=== PATIENT | female | born 1990 | race African-American/Black ===

== ENCOUNTER 2016-02-27 22:23 | Emergency (ER) | payer OTHER ==
[2016-02-27] MEDS ORDERED: HYDROcod/ACETAM 5/325 MG TABLET PO STA (22:51)
[2016-02-27] MEDS ORDERED: ACETAMINOPHEN 500 MG TABLET PO STA (22:51)
[2016-02-27] MEDS ORDERED: DEXAMETHASONE 10 MG/ML VIAL PO STA (22:51)
[2016-02-27] MEDS ORDERED: CEPHALEXIN 250 MG CAPSULE PO STA (22:51)
[2016-02-27] MEDS ORDERED: CEPHALEXIN 250 MG CAPSULE PO ONE (23:00)
[2016-02-27] MEDS ORDERED: ACETAMINOPHEN 500 MG TABLET PO ONE (23:00)
[2016-02-27] MEDS ORDERED: HYDROcod/ACETAM 5/325 MG TABLET ONE (23:00)
[2016-02-27] MEDS ORDERED: DEXAMETHASONE 10 MG/ML VIAL ONE (23:00)
[2016-02-27] MEDS ORDERED: HYDROcod/ACET 5/325 Prepack 6 PO ONE ×2 (23:03→23:04)
== END 2016-02-27 23:16 | disposition home or self-care (01) ==
DX: J03.90 Acute tonsillitis, unspecified (principal); R50.9 Fever, unspecified
CPT/HCPCS: 81003; 81025; 99283; A9270

== ENCOUNTER 2016-11-14 10:10 | Emergency (ER) | payer OTHER ==
[2016-11-14] MEDS ORDERED: CYCLOBENZAPRINE 10 MG TABLET PO STA (10:43)
[2016-11-14] MEDS ORDERED: KETOROLAC 60 MG/2 ML VIAL IM STA (10:43)
[2016-11-14] MEDS ORDERED: LIDOCAINE PATCH 5% TOP STA (10:43)
--- NOTE | 2016-11-14 10:45 | ED Physician Documentation ---
History of Present Illness - Stated complaint Stated Complaint: BACK PAIN - Chief complaint Chief Complaint: Back Pain - Additonal information Additional information: hx from pt 26 AD [place] female with a hx of back pain inc pain today while doing PRT no numbness weakness (except 2/2 pain) or incont no new injury denies preg Review of Systems Constitutional: denies: Fever Ears: denies: Ear pain Throat: denies: Sore throat Cardiac: denies: Chest pain / pressure Respiratory: denies: Dyspnea, Cough GI: denies: Abdominal Pain : denies: Now EGA Musculoskeletal: reports: Back pain Neurologic: denies: Focal weakness, Numbness Endocrine: denies: Easy bruising / bleeding Immunocompromised: denies: Immunocompromised PD PAST MEDICAL HISTORY - Past Medical History Past Medical History: Yes Musculoskeletal: Chronic back pain - Past Surgical History Past Surgical History: No - Present Medications Home Medications: Ambulatory Orders Medication Instructions Recorded Confirmed Cephalexin [Keflex] 500 mg PO TID #21 capsule 02/27/16 Dexamethasone [Decadron] 4 mg PO DAILY #5 tablet 02/27/16 Carisoprodol [Soma] 350 mg PO Q8H PRN #15 tablet 11/14/16 Ibuprofen [Motrin] 400 mg PO Q6H PRN #30 tablet 11/14/16 Lidocaine Patch 5% [Lidoderm Patch] 1 each TOP DAILY PRN #10 patch 11/14/16 - Allergies Allergies/Adverse Reactions: Allergies Allergy/AdvReac Type Severity Reaction Status Date / Time No Known Drug Allergies Allergy Verified 02/27/16 22:29 - Social History Does the pt smoke?: No Smoking Status: Never smoker Does the pt drink ETOH?: Yes Does the pt have substance abuse?: No - Immunizations Immunizations are current?: Yes - POLST Patient has POLST: No PD ED PE NORMAL - Vitals Vital signs reviewed: Yes - Neck Neck: Supple, no meningeal sign - Cardiac Cardiac: RRR - Respiratory Respiratory: No respiratory distress, Clear bilaterally - Abdomen Abdomen: Soft, Non tender, Other (no pulsatile mass) - Derm Derm: Normal color - Neuro Neuro: Alert and oriented X 3, No motor deficit, No sensory deficit, Other ( limited by pain but hip felxion knee ext foot dorsi plantar andgreat toe ext intact, patellar DTR 2/4, neg SLR evelyn (only back pain) no clonus, sensation intact, denies saddle anesthesia) - Psych Psych: Normal mood Results - Vitals Vitals: Vital Signs - 24 hr 11/14/16 11/14/16 10:22 11:24 Temperature 36.9 C 36.3 C L Heart Rate 102 H 72 Respiratory 18 18 Rate Blood Pressure 121/74 111/69 O2 Saturation 100 100 Oxygen O2 Source Room air Departure - Departure Disposition: Home, Self Care Clinical Impression: Back pain Qualifiers: Back pain location: low back pain Chronicity: acute Back pain laterality: bilateral Sciatica presence: without sciatica Qualified Code(s): M54.5 - Low back pain Condition: Good Instructions: ED Low Back Pain Injury, ED Neck Back Pain General Follow-Up: AUDREY Betancourt [Provider Group] Prescriptions: Lidocaine Patch 5% [Lidoderm Patch] 1 each TOP DAILY PRN #10 patch PRN Reason: Pain Ibuprofen [Motrin] 400 mg PO Q6H PRN #30 tablet PRN Reason: Pain Carisoprodol [Soma] 350 mg PO Q8H PRN #15 tablet PRN Reason: muscle spasm Comments: You may walk around but no lifting or twisting or sports until you feel better Follow up at [facility] for a recheck within the next week Forms: Activity restrictions
[2016-11-14] MEDS ORDERED: CYCLOBENZAPRINE 10 MG TABLET PO ONE (10:57)
[2016-11-14] MEDS ORDERED: KETOROLAC 60 MG/2 ML VIAL ONE (10:57)
[2016-11-14] MEDS ORDERED: LIDOCAINE PATCH 5% TOP ONE (10:57)
[2016-11-14 11:25] VITALS: BP 111/69
== END 2016-11-14 12:00 | disposition home or self-care (01) ==
LOC: EDUNIT# → EDBD → ED 10:10
DX: M54.5 Low back pain (principal); G89.29 Other chronic pain
CPT/HCPCS: 96372; 99283; A9270

== ENCOUNTER 2017-10-06 19:20 | Emergency (ER) | payer OTHER ==
[2017-10-06 19:54] LABS: BILIRUBIN,URINE NEGATIVE (NEGATIVE); GLUCOSE, URINE (UA) NEGATIVE (NEGATIVE); KETONES,URINE (UA) NEGATIVE (NEGATIVE); LEUKOCYTE ESTERASE, URINE TRACE (NEGATIVE); NITRITE,URINE NEGATIVE (NEGATIVE); OCCULT BLOOD,URINE NEGATIVE (NEGATIVE); PH,URINE 5.5 PH (5.0-7.5); PROTEIN,URINE NEGATIVE (NEGATIVE); UROBILINOGEN,URINE 0.2 (NORMAL) E.U./dL (NORMAL)
[2017-10-06 19:57] LABS: CLARITY,URINE CLEAR (CLEAR); HCG UR QUAL POSITIVE
[2017-10-06] MEDS ORDERED: SODIUM CHLORIDE 0.9% 1,000 ML IV ONE (20:00)
[2017-10-06] MEDS ORDERED: METOCLOPRAMIDE 10 MG/2 ML VIAL IVP STA (20:00)
[2017-10-06 20:07] LABS: RBC,URINE None Seen /HPF (0-5)
[2017-10-06 20:08] LABS: BACTERIA,URINE Moderate /HPF (None Seen); MUCUS,URINE Moderate Strands; SQUAMOUS EPITHELIAL CELL,UR MANY Squamous (<= Few)
--- NOTE | 2017-10-06 20:19 | ED Physician Documentation ---
History of Present Illness - Stated complaint Stated Complaint: FAINTED - Chief complaint Chief Complaint: Abd Pain - History obtained from History obtained from: Patient - Additonal information Additional information: 27-year-old female presents the emergency department after a syncopal episode which occurred today at home. The patient reports feeling generally weak the past several days with intermittent episodes of nausea vomiting mostly in the morning. Today the patient began to feel lightheaded and when she stood up had a witnessed syncopal episode. The patient denies chest pain or palpitations before or after the event. The patient denies any trauma associated with the injury. The patient denies dysuria, vaginal bleeding or significant localized pain. Presently the patient feels improved. No other associated symptoms. Review of Systems Constitutional: reports: Fatigue. denies: Fever, Chills Eyes: denies: Photophobia Ears: denies: Ear pain Nose: denies: Congestion Throat: denies: Sore throat Cardiac: denies: Chest pain / pressure, Palpitations GI: reports: Nausea, Vomiting : denies: Dysuria Musculoskeletal: denies: Neck pain Neurologic: reports: Syncope. denies: Generalized weakness, Headache, Head injury Psychiatric: denies: Anxiety Immunocompromised: denies: Chemotherapy PD PAST MEDICAL HISTORY - Past Surgical History Past Surgical History: No - Present Medications Home Medications: Ambulatory Orders Medication Instructions Recorded Confirmed Cephalexin [Keflex] 500 mg PO TID #21 capsule 02/27/16 Dexamethasone [Decadron] 4 mg PO DAILY #5 tablet 02/27/16 Carisoprodol [Soma] 350 mg PO Q8H PRN #15 tablet 11/14/16 Ibuprofen [Motrin] 400 mg PO Q6H PRN #30 tablet 11/14/16 Lidocaine Patch 5% [Lidoderm Patch] 1 each TOP DAILY PRN #10 patch 11/14/16 Metoclopramide [Reglan] 10 mg PO Q6H PRN #30 tablet 10/06/17 - Allergies Allergies/Adverse Reactions: Allergies Allergy/AdvReac Type Severity Reaction Status Date / Time No Known Drug Allergies Allergy Verified 02/27/16 22:29 - Social History Does the pt smoke?: No Smoking Status: Never smoker Does the pt drink ETOH?: Yes Does the pt have substance abuse?: No - Immunizations Immunizations are current?: Yes - POLST Patient has POLST: No PD ED PE NORMAL - General General: Alert and oriented X 3, No acute distress - HEENT HEENT: Atraumatic, PERRL, EOMI, Ears normal - Neck Neck: Supple, no meningeal sign, No bony TTP - Cardiac Cardiac: RRR - Respiratory Respiratory: No respiratory distress, Clear bilaterally - Abdomen Abdomen: Soft, Non tender, Non distended - Back Back: No spinal TTP - Derm Derm: Normal color - Extremities Extremities: No deformity, No tenderness to palpate - Neuro Neuro: Alert and oriented X 3, Normal speech - Psych Psych: Normal affect Results - Vitals Vitals: Vital Signs - 24 hr 10/06/17 10/06/17 10/06/17 19:41 20:36 20:38 Temperature 36.5 C Heart Rate 83 90 Respiratory 18 17 17 Rate Blood Pressure 137/80 H 106/64 O2 Saturation 100 100 10/06/17 10/06/17 10/06/17 21:28 21:32 21:37 Temperature Heart Rate 81 Respiratory 17 20 16 Rate Blood Pressure 115/67 O2 Saturation 100 Oxygen O2 Source Room air - EKG (time done) 20:16 Rate: Rate (enter#) Rhythm: NSR Intervals: Normal VA, QRS normal QRS: Normal Ischemia: Normal ST segments Other comments: Other comments (Normal sinus rhythm with no acute ischemic or arrhythmic changes) - Labs Labs: Laboratory Tests 10/06/17 10/06/17 10/06/17 19:50 19:50 20:10 WBC 10.8 RBC 4.57 Hgb 13.8 Hct 39.2 MCV 85.6 MCH 30.1 MCHC 35.2 RDW 13.5 Plt Count 234 MPV 8.5 Neut # (Auto) 6.3 Lymph # (Auto) 3.7 H [place] # (Auto) 0.7 Eos # (Auto) 0.1 Baso # (Auto) 0.0 Absolute Nucleated RBC 0.00 Nucleated RBC % 0.0 Sodium Potassium Chloride Carbon Dioxide Anion Gap BUN Creatinine Estimated GFR (MDRD) Glucose Calcium Magnesium Total Bilirubin AST ALT Alkaline Phosphatase Total Protein Albumin Globulin Albumin/Globulin Ratio Lipase HCG, Quant Urine Color YELLOW Urine Clarity CLEAR Urine pH 5.5 Ur Specific [place] >=1.030 H >=1.030 H Urine Protein NEGATIVE Urine Glucose (UA) NEGATIVE Urine Ketones NEGATIVE Urine Occult Blood NEGATIVE Urine Nitrite NEGATIVE Urine Bilirubin NEGATIVE Urine Urobilinogen 0.2 (NORMAL) Ur Leukocyte Esterase TRACE H Urine RBC None Seen Urine WBC 0-3 Ur Squamous Epith Cells MANY Squamous H Urine Bacteria Moderate H Urine Mucus Moderate Strands Ur Microscopic Review INDICATED Urine Culture Comments NOT INDICATED Urine HCG, Qual POSITIVE 10/06/17 10/06/17 20:10 20:10 WBC RBC Hgb Hct MCV MCH MCHC RDW Plt Count MPV Neut # (Auto) Lymph # (Auto) [place] # (Auto) Eos # (Auto) Baso # (Auto) Absolute Nucleated RBC Nucleated RBC % Sodium 135 Potassium 3.1 L Chloride 101 Carbon Dioxide 26 Anion Gap 8.0 BUN 9 Creatinine 0.7 Estimated GFR (MDRD) 122 Glucose 81 Calcium 9.2 Magnesium 2.0 Total Bilirubin 0.7 AST 21 ALT 15 Alkaline Phosphatase 61 Total Protein 7.5 Albumin 4.0 Globulin 3.5 Albumin/Globulin Ratio 1.1 Lipase 27 HCG, Quant 73338.00 Urine Color Urine Clarity Urine pH Ur Specific [place] Urine Protein Urine Glucose (UA) Urine Ketones Urine Occult Blood Urine Nitrite Urine Bilirubin Urine Urobilinogen Ur Leukocyte Esterase Urine RBC Urine WBC Ur Squamous Epith Cells Urine Bacteria Urine Mucus Ur Microscopic Review Urine Culture Comments Urine HCG, Qual - Rads (name of study) OB US Radiology: Final report received PD MEDICAL DECISION MAKING - ED course ED course: On reevaluation the patient is resting comfortably and appears to be much improved, The patient reports feeling that her symptoms have resolved. The patient is an early and an ultrasound was done to rule out an ectopic causing her to be syncopal. The rest of the patient's workup is on remarkable and the patient appears appropriate for discharge and ongoing outpatient management. I discussed with her the findings and plan. The patient understands and agrees. I discussed warning signs and recommended returning to the emergency department immediately for worsening or any concerns - Sepsis Event Vital Signs: Vital Signs - 24 hr 10/06/17 10/06/17 10/06/17 19:41 20:36 20:38 Temperature 36.5 C Heart Rate 83 90 Respiratory 18 17 17 Rate Blood Pressure 137/80 H 106/64 O2 Saturation 100 100 10/06/17 10/06/17 10/06/17 21:28 21:32 21:37 Temperature Heart Rate 81 Respiratory 17 20 16 Rate Blood Pressure 115/67 O2 Saturation 100 Oxygen O2 Source Room air Departure - Departure Disposition: 01 Home, Self Care Clinical Impression: Hypokalemia Syncope Qualifiers: Syncope type: unspecified Qualified Code(s): R55 - Syncope and collapse Qualifiers: Weeks of gestation: less than 8 weeks Qualified Code(s): Z3A.01 - Less than 8 weeks gestation of Condition: Good Instructions: ED Fainting Unkn Cause, Preg 1st Trimester, Preg 1st Trimester Coping, Preg Common Questions, Preg More Common Questions Prescriptions: Metoclopramide [Reglan] 10 mg PO Q6H PRN #30 tablet PRN Reason: Nausea / Vomiting Comments: Please follow-up with your [facility]STRA[facility] for further workup and management of your early . Please follow-up with primary care for further evaluation of your syncopal episode. You may require an outpatient Holter monitor and echocardiogram. Please return to the emergency department immediately for worsening symptoms or any concerns.
[2017-10-06 20:43] LABS: BASOPHILS % (AUTO) 0.4 %; EOSINOPHILS # (AUTO) 0.1 10^3/uL (0.0-0.7); EOSINOPHILS % (AUTO) 0.7 %; HGB - HEMOGLOBIN 13.8 g/dL (12.0-16.0); LYMPHOCYTES # (AUTO) 3.7 10^3/uL (1.5-3.5); LYMPHOCYTES % (AUTO) 34.3 %; MEAN CORPUSCULAR HEMOGLOBIN 30.1 pg (27.0-31.0); MEAN CORPUSCULAR HGB CONC 35.2 g/dL (32.0-36.0); MEAN CORPUSCULAR VOLUME 85.6 fL (81.0-99.0); MEAN PLATELET VOLUME 8.5 fL (7.9-10.8); MONOCYTES # (AUTO) 0.7 10^3/uL (0.0-1.0); MONOCYTES % (AUTO) 6.8 %; NEUTROPHILS # (AUTO) 6.3 10^3/uL (1.5-6.6); NEUTROPHILS % (AUTO) 57.8 %; PLT - PLATELET COUNT 234 10^3/uL (130-450); RED BLOOD COUNT 4.57 10^6/uL (4.20-5.40); RED CELL DISTRIBUTION WIDTH 13.5 % (12.0-15.0); WHITE BLOOD COUNT 10.8 x10^3/uL (4.8-10.8)
[2017-10-06 20:52] LABS: ALBUMIN/GLOBULIN RATIO 1.1 (1.0-2.2); BILIRUBIN,TOTAL 0.7 mg/dL (0.2-1.0); CALCIUM 9.2 mg/dL (8.5-10.3); CREATININE 0.7 mg/dL (0.4-1.0); TOTAL PROTEIN 7.5 g/dL (6.7-8.2)
[2017-10-06] MEDS ORDERED: POTASSIUM CHLORIDE 20 MEQ TABLET PO STA (20:55)
[2017-10-06 21:34] VITALS: BP 115/67
--- NOTE | 2017-10-06 21:38 | Ultrasound Report ---
Procedure Date: 10/06/2017 Accession Number: [id number] / [id number] Procedure: US - OB First Trimester CPT Code: FULL RESULT: EXAM: FIRST TRIMESTER OBSTETRIC ULTRASOUND (Less than 11 weeks) EXAM DATE: 10/06/2017 08:46 PM. CLINICAL HISTORY: with pain. LMP: Unknown. COMPARISONS: None. TECHNIQUE: Transabdominal and transvaginal ultrasound examination with static image documentation. CLINICAL DATES: EGA 7 weeks/5 days with SAMI 05/20/2017 based on LMP/ . ASSESSMENT: Gestational Sac: Single intrauterine. Mean gestational sac diameter: 18.2 mm = 6 weeks/one days. Embryo: CRL (crown-rump length) 5.4 mm = 6 weeks/2 days. Cardiac activity: 126 beats per minute. Yolk sac: 4 mm. Amniotic fluid: Not accurately assessed at this gestational age. Early placenta: Not visible at this gestational age. Other: No perigestational fluid collection demonstrated. MATERNAL STRUCTURES: Uterus: Anteverted . Unremarkable. Cervix: Closed. Right Ovary/Adnexa: Unremarkable. The ovary measures 3 x 1.5 x 1.7 cm, volume 4.1 cc. Left Ovary/Adnexa: Unremarkable. The ovary measures 2.6 x 1.6 x 1.5 cm, volume 3.3 cc. Free Fluid: None. Other: None. IMPRESSION: 1. Single viable intrauterine at EGA 6 weeks/2 days with SAMI 05/30/2018 based on crown-rump length, which is discordant with clinical dates. RADIA
== END 2017-10-06 22:19 | disposition home or self-care (01) ==
LOC: ED 19:20
DX: O99.89 Other specified diseases and conditions complicating pregnancy, childbirth and the puerperium (principal); E87.6 Hypokalemia; R55 Syncope and collapse
CPT/HCPCS: 36415; 76801; 76817; 80053; 81001; 81025; 83690; 83735; 84702; 85025; 93005; 96361; 96374; 99283; 99284; A9270; J2765; 81003; 87086

== ENCOUNTER 2018-05-04 08:00 | Outpatient (CLI) | payer OTHER | END 2018-05-04 23:59 | disposition home or self-care (01) | LOC: LAB.R 08:00 | PROVIDERS: ATTEND Registered Nurse | DX: Z34.90 Encounter for supervision of normal pregnancy, unspecified, unspecified trimester (principal) | CPT/HCPCS: 87077; 87081; 87491; 87591 ==

== ENCOUNTER 2018-05-04 11:07 | Outpatient (CLI) | payer OTHER ==
[2018-05-05 13:36] LABS: HIV AG/AB 4TH GEN NON-REACTIVE (NON-REACTIVE)
[2018-05-05 13:53] LABS: HEPATITIS C ANTIBODY NON-REACTIVE (NON-REACTIVE)
== END 2018-05-04 11:08 | disposition home or self-care (01) ==
LOC: LAB 11:07
PROVIDERS: ATTEND Registered Nurse
DX: Z34.90 Encounter for supervision of normal pregnancy, unspecified, unspecified trimester (principal)
CPT/HCPCS: 36415; 81599; 86592; 86803; 87077; 87081; 87389; 87491; 87591

== ENCOUNTER 2018-06-03 14:31 | Inpatient (IN) | payer OTHER ==
[2018-06-03] MEDS ORDERED: SODIUM CHLORIDE FLUSH 0.9% 10 ML SYRINGE IVP PRN (14:34)
[2018-06-03] MEDS ORDERED: fentaNYL 100 MCG/2 ML VIAL IVP PRN (14:34)
[2018-06-03] MEDS ORDERED: ONDANSETRON 4 MG/2 ML VIAL IVP PRN (14:34)
[2018-06-03] MEDS ORDERED: SODIUM CHLORIDE FLUSH 0.9% 10 ML SYRINGE ONE (14:45)
[2018-06-03 15:04] LABS: BASOPHILS # (AUTO) 0.1 10^3/uL (0.0-0.1); BASOPHILS % (AUTO) 0.7 %; EOSINOPHILS % (AUTO) 0.3 %; HGB - HEMOGLOBIN 10.7 g/dL (12.0-16.0); LYMPHOCYTES % (AUTO) 21.9 %; MEAN CORPUSCULAR HEMOGLOBIN 23.7 pg (27.0-31.0); MEAN CORPUSCULAR HGB CONC 31.9 g/dL (32.0-36.0); MEAN CORPUSCULAR VOLUME 74.2 fL (81.0-99.0); MEAN PLATELET VOLUME 8.5 fL (7.9-10.8); MONOCYTES # (AUTO) 0.8 10^3/uL (0.0-1.0); MONOCYTES % (AUTO) 5.8 %; NEUTROPHILS # (AUTO) 9.8 10^3/uL (1.5-6.6); NEUTROPHILS % (AUTO) 71.3 %; PLT - PLATELET COUNT 249 10^3/uL (130-450); RED BLOOD COUNT 4.51 10^6/uL (4.20-5.40); RED CELL DISTRIBUTION WIDTH 19.4 % (12.0-15.0); WHITE BLOOD COUNT 13.7 x10^3/uL (4.8-10.8)
[2018-06-03] MEDS ORDERED: LACTATED RINGERS 1,000 ML IV ONE (15:38)
[2018-06-03] MEDS: miSOPROStol 100 MCG TABLET BC SCH ×2 (15:44→20:08)
[2018-06-03] MEDS: SODIUM CHLORIDE FLUSH 0.9% 10 ML SYRINGE IVP SCH (15:45)
[2018-06-03] MEDS ORDERED: PENICILLIN G POTASSIUM 5,000,000 UNIT in SODIUM CHLORIDE 0.9% MINIBAG 100 ML IV ONE (16:00)
[2018-06-03 16:25] LABS: URIC ACID 3.4 mg/dL (2.6-7.2)
[2018-06-03 17:05] LABS: BILIRUBIN,URINE NEGATIVE (NEGATIVE); GLUCOSE, URINE (UA) NEGATIVE (NEGATIVE); KETONES,URINE (UA) 40 mg/dL (NEGATIVE); LEUKOCYTE ESTERASE, URINE LARGE (NEGATIVE); NITRITE,URINE NEGATIVE (NEGATIVE); OCCULT BLOOD,URINE TRACE-INTA (NEGATIVE); PH,URINE 5.5 PH (5.0-7.5); PROTEIN,URINE NEGATIVE (NEGATIVE); UROBILINOGEN,URINE 0.2 (NORMAL) E.U./dL (NORMAL)
[2018-06-03 17:06] LABS: CLARITY,URINE CLEAR (CLEAR)
[2018-06-03 17:10] LABS: CREATININE,URINE 63.6 mg/dL; PROTEIN/CREATININE RATIO,URINE 0.1 (<=0.2)
[2018-06-03 17:14] LABS: BACTERIA,URINE Rare /HPF (None Seen); RBC,URINE 0-5 /HPF (0-5); SQUAMOUS EPITHELIAL CELL,UR MOD Squamous (<= Few)
[2018-06-03] MEDS: LABETALOL 100 MG TABLET PO SCH (17:29)
[2018-06-03] MEDS ORDERED: LABETALOL 100 MG TABLET PO SCH (17:30)
--- NOTE | 2018-06-03 17:54 | HISTORY & PHYSICAL EXAMINATION ---
Admit History - Visit Reason Visit Reason: Other - : 2 Parity: 1 Premature: 0 Ectopic: 0 : 0 Care: positive: [facility] Risk/History: positive: None Complications This : positive: None Smoking Status: Never smoker - Mother's Labs Mother's Blood Type: positive: O Mother's RH: positive: Positive GBS: positive: Group B Strep Positive Rubella Status: positive: Immune Meds/Allgy - Home Medications Home Medications: Ambulatory Orders Medication Instructions Recorded Confirmed Cephalexin [Keflex] 500 mg PO TID #21 capsule 02/27/16 Dexamethasone [Decadron] 4 mg PO DAILY #5 tablet 02/27/16 Carisoprodol [Soma] 350 mg PO Q8H PRN #15 tablet 11/14/16 Ibuprofen [Motrin] 400 mg PO Q6H PRN #30 tablet 11/14/16 Lidocaine Patch 5% [Lidoderm Patch] 1 each TOP DAILY PRN #10 patch 11/14/16 Metoclopramide [Reglan] 10 mg PO Q6H PRN #30 tablet 10/06/17 - Allergies Allergies/Adverse Reactions: Allergies Allergy/AdvReac Type Severity Reaction Status Date / Time No Known Drug Allergies Allergy Verified 02/27/16 22:29 Review of Systems - Constitutional Constitutional: denies: Fever, Chills, Malaise - Eyes Eyes: denies: Blurred vision, Spots in vision, Dipolpia - Cardiovascular Cariovascular: denies: Palpitations, Chest pain, Edema, Lightheadedness - Respiratory Respiratory: denies: Cough, SOB at rest - Gastrointestinal Gastrointestinal: denies: Constipation, Diarrhea, Nausea, Vomiting - Integumentary Integumentary: denies: Rash, Pruritis - Psychiatric Psychiatric: denies: Depression, Anxiety Physical - Abdominal Exam Contraction Intensity: positive: Mild Uterine Resting Tone: positive: Soft - Monitoring Strip Review: positive: Category I - Presentation Presentation: positive: Vertex - Vaginal Exam Membranes: positive: Membranes intact Plan for Labor - Plan For Labor I expect patient to be DC'd or transferred within 96 hours.: Yes Plan for Labor: HPI: This 28yo @ 40.3wk for elective induction of labor. 06/03/2018 in the office she was noted to be 2/50/-3, posterior, vertex. She contracted minimally throughout the night and SVE was not repeated upon her arrival. She was noted to be GBS positive. She was a transfer of care at 35wks gestation. She was dated by a 16.3wk U/S which was disconcordant from her LMP dating. 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 Upon her arrival she was noted to have elevated BP to 140s/90s with repeats 150s/100s. She denies DIALLO, visual disturbances, RUQ or epigastric pain, and neg edema. DTRs 2+, no clonus. Of note, her temperature was elevated to 37.4 and increased to 37.6. WBC 13. Rapid flu negative. Pt denies feeling ill. Denies dizziness, lightheadedness, chills or malaise. 650mg PO tylenol administered secondary to fever. Her UA was negative for protein and her pr/cr ratio is <0.1. PIH labs WNL. Will plan to repeat PIH labs in 12 hours or sooner PRN. Dr[address] Pelletier, sugar controller physician was notified and secondary to patient plan for unmedicated delivery and obvious BP unrelated to pain response, recommendation was to administer 100mg PO lobetalol q 8 hrs to be administered if BP exceeds 150 systolic or 100 diastolic. 100mg PO lobetalol administered and BP decreased to 130s/90s. Pt continues to be asymptomatic. Assessment: 28yo @ 40.3wks gestation Gestational HTN GBS positive IOL with preinduction cervical ripening Plan: Continuous monitoring 100mg PO lobetalol q 8 hrs to be administered if BP exceeds 150 systolic or 100 diastolic Continue penicillin for GBS prophylaxis per protocol Continue Tylenol PO q 6 hrs PRN fever. Plan Ambien PO tonight. Anticipate spontaneous vaginal delivery
[2018-06-03] MEDS ORDERED: ACETAMINOPHEN 325 MG TABLET PO PRN (18:53)
[2018-06-03] MEDS ORDERED: ZOLPIDEM 5 MG TABLET PO PRN (19:31)
[2018-06-03] MEDS ORDERED: PENICILLIN G POTASSIUM 2,500,000 UNIT in SODIUM CHLORIDE 0.9% 100ML 100 ML IV SCH (20:00)
--- NOTE | 2018-06-03 20:14 | PROVIDER PROGRESS NOTE ---
Labor Progress Note - Uterine Monitoring Uterine Monitoring Mode: positive: External toco Contraction Intensity: positive: Mild to moderate Uterine Resting Tone: positive: Soft - Monitoring Monitor Mode: positive: External ultrasound Heart Rate Baseline: 150 Heart Rate Variability: positive: Moderate (6-25 bmp) Accelerations: positive: Present, 15x15 Decelerations: positive: None Strip Review: positive: Category I - Vaginal Exam Dilation (in cm): 3 Effacement (%): 80 Station: -2 Cervical Position: Midposition - Labor Progress Note Labor Progress Note/Additional Text: S: Laying in bed and feeling chilled. She requests a warm blanket and increase in room temperature. Family feels comfortable in the room. Feeling an increase in the intensity of contractions. Mood is good. supportive at the bedside. O: T 38.0, BP 145/84, HR 105 Contractions palpate mild. Contracted regularly every 2-5 minutes after initial dose of misoprostol but since next dose of misoprostol is due, contractions have become irregular and intermittent. FHR baseline 150s, moderate variability, + accels, one variable deceleration noted. SVE 3/80/-2, midposition, soft, vertex AROM with scan amount of pink-tinged fluid A: 28yo @ 40.3wks gestation GBS positive - s/p loading dose of penicillin Pre-induction cervical ripening with misoprostol - s/p 1 dose 50mcg BC misoprostol Gestational HTN - s/p 1 dose 100mg lobetalol and repeat dose parameters provided. Asymptomatic Low grade fever & chills - s/p 650mg PO tylenol P: Continuous monitoring BP q 2 hours. Repeat PIH labs at 0400. Administer lobetalol 100mg q 8 hours if BP systolic >150s and diastolic >100 Continue BC misoprostol q 4 hours Anticipate spontaneous vaginal delivery
[2018-06-03] MEDS ORDERED: LIDOCAINE-MPF 1% 30 ML VIAL ONE (20:43)
[2018-06-03] MEDS ORDERED: OXYTOCIN/SODIUM CHLORIDE 500 ML IV ONE (20:43)
[2018-06-03] MEDS: OXYTOCIN/SODIUM CHLORIDE 500 ML IV PRN ×2 (23:10→23:50)
[2018-06-03] MEDS ORDERED: BUFFERED LIDOCAINE 10 ML SYRINGE SUBQ SCH (23:59)
[2018-06-04] MEDS ORDERED: OXYTOCIN/SODIUM CHLORIDE 500 ML IV ONE (00:02)
[2018-06-04] MEDS ORDERED: LIDOCAINE 1% 2 ML VIAL SUBQ SCH (00:11)
[2018-06-04] MEDS ORDERED: OXYTOCIN/SODIUM CHLORIDE 500 ML IV PRN ×2 (00:15)
[2018-06-04] MEDS ORDERED: HYDROCORTISONE 1% CREAM 28 GM TUBE PR PRN (00:18)
[2018-06-04] MEDS ORDERED: WITCH HAZEL/GLYCERIN 1 EACH MED..PAD TOP PRN (00:18)
[2018-06-04] MEDS: ACETAMINOPHEN 500 MG TABLET PO PRN ×2 (00:47→06:11)
--- NOTE | 2018-06-04 01:25 | DELIVERY NOTE ---
Delivery Note - Labor Labor: positive: Augmented by ARM, Other - Delivery Method Delivery Method: positive: Spontaneous vaginal delivery - Presentation Presentation: positive: Vertex, CECILE - left occiput anterior - Nuchal Cord Nuchal Cord: positive: Present, Reduced - Amniotic Fluid Description Amniotic Fluid Description: positive: Clear - Episiotomy Type Episiotomy Type: positive: None - Laceration Laceration: positive: 1st degree, 2nd degree, Labial, Perineal - Suture Suture Type: positive: Vicryl Suture Size: positive: 3-0 - Delivery Outcome Delivery Outcome: positive: Livebirth - [place]: positive: Placed in direct skin contact with mother, Suctioned, Bulb syringe, Stimulated, Warmed, [place] used sex: positive: Male - Cord Cord: positive: 3 vessels - Placenta Placenta: positive: Intact, Manual removal - Estimated Blood Loss Estimated Blood Loss (in cc): 350 - Post Delivery Events Post Delivery Events: positive: No post delivery events - Delivery Comments (Free Text/Narrative) Delivery Comments (Free Text/Narrative): This 28yo @ 40.3wks gestation by L=16.3wk U/S presented on 06/03/2018 @ 1420 for elective IOL. She was noted to have elevated BP upon her arrival 150s/100s with negative PIH labs and negative urine protein and remained asymptomatic. She was given 100mg PO labetalol and BP decreased to 130s/90s where it remained throughout her labor and delivery course. At approximately 1700 she was noted to have a low grade fever and chills. Her rapid influenza was negative. She received 650mg Tylenol PO. She tested positive for GBS and received penicillin per protocol for prophylaxis. She received 50mcg BC misoprostol q 4 hours for preinduction cervical ripening x 2 total doses. AROM occurred at 1953 and was noted to be a scant amount of pink-tinged fluid and pt continued to leak a small amount of clear amniotic fluid. She progressed to 9/10 0/-1 with spontaneous urge to push at 2235. Anterior cervical lip easily reduced and pt noted to be complete at 2245. She spontaneously delivered a viable male infant at 2309 on 06/03/2018. Nuchal cord x 1 reduced. 's 7/9 at 1 and 5 min respectively. The was placed on maternal abdomen, stimulated, dried, and placed skin to skin. The umbilical cord was doubly clamped by CNM and cut by FOB. Cord blood was obtained. Pitocin administered via IV for hemostasis. Cord noted to lengthen with gush of blood from vagina and gentle downward traction on the umbilical cord caused evulsion at cord insertion site into placenta. Pitocin infusion stopped and 50mcg Fentanyl administered via IV. Incomplete manual removal of placenta at 2325 with moderate bleeding. Pitocin initiated via IV. Dr. Pelletier, mortgage protection sales physician notified and presence requested at the bedside for assistance. Second attempt at manual removal of the placenta successful in evacuating the uterus of large portion of placenta and membranes at 2330. Dr. Pelletier arrived at the bedside and a limited bedside transabdominal ultrasound was performed. Upper uterine segment appeared free from retained products of conception and lower uterine segment at internal cervical os there appeared to be a blood clot which was expelled along with small piece of placenta tissue with fundal massage shortly after U/S. EBL 350mL. Uterine fundus firm and there is no excessive bleeding. The perineum, vagina, and cervix were inspected and found to have second degree perineal laceration which was repaired with 3-[address]-1 needle in standard fashion under sterile conditions. She was also noted to have a left labial laceration which repaired using a 4-0 vicryl on an SH needle in standard fashion under sterile conditions. Vaginal examination following repair was done. Tissues well approximated. initiated. Family bonding well. Both mother and baby were left in stable condition.
[2018-06-04] MEDS: IBUPROFEN 800 MG TABLET PO SCH ×3 (03:31→15:33)
[2018-06-04 04:12] LABS: BASOPHILS % (AUTO) 0.1 %; HGB - HEMOGLOBIN 8.6 g/dL (12.0-16.0); LYMPHOCYTES # (AUTO) 1.5 10^3/uL (1.5-3.5); LYMPHOCYTES % (AUTO) 6.2 %; MEAN CORPUSCULAR HEMOGLOBIN 23.7 pg (27.0-31.0); MEAN CORPUSCULAR HGB CONC 32.5 g/dL (32.0-36.0); MEAN PLATELET VOLUME 8.3 fL (7.9-10.8); MONOCYTES # (AUTO) 1.5 10^3/uL (0.0-1.0); MONOCYTES % (AUTO) 6.4 %; NEUTROPHILS # (AUTO) 20.7 10^3/uL (1.5-6.6); NEUTROPHILS % (AUTO) 87.3 %; PLT - PLATELET COUNT 221 10^3/uL (130-450); RED BLOOD COUNT 3.64 10^6/uL (4.20-5.40); RED CELL DISTRIBUTION WIDTH 19.3 % (12.0-15.0); WHITE BLOOD COUNT 23.8 x10^3/uL (4.8-10.8)
[2018-06-04 04:22] LABS: URIC ACID 3.3 mg/dL (2.6-7.2)
[2018-06-04 04:43] LABS: DIFFERENTIAL COMMENT MANUAL=AUTO DIFF; PLATELET ESTIMATE, MANUAL NORMAL (130-450,000) (NORMAL); RBC MORPHOLOGY (MULTIPLE) NORMAL APPEARANCE (NORMAL)
[2018-06-04] MEDS: HYDROcod/ACETAM 5/325 MG TABLET PO PRN ×2 (06:11→11:06)
--- NOTE | 2018-06-04 07:55 | PROVIDER PROGRESS NOTE ---
Subjective - Subjective Subjective: S: Bonding well with baby. Feeling fatigued but overall feels she is doing well. She report some discomfort at perineum with urination but has been consistently using her peribottle and tucks pads which she feels does help. Her pain is otherwise well controlled with oral medications. She does report some dizziness and lightheadedness when going from a sitting to a standing position. Denies symptoms at rest. without difficulty and she states when baby nurses it is significantly less uncomfortable than it was with her first. O: BP 128/88, RR 16, HR 103, T 37.2 Hgb 10.7-->8.6 Hct 33.5-->26.5 WBC 13.7-->23.8 PLT 249-221 Repeat PIH labs WNL Heart RRR w/o M/G/R, lungs CTAB, abdomen soft and nontender with fundus firm at U. Perineum intact, repair with mild edema. Light lochia rubra. Bilateral LE's no edema. A: 28yo -->P2 s/p TSVD of viable male infant Second degree perineal laceration - intact Gestational HTN - BP mildly elevated. Has not required additional treatment since initial dose of labetalol. Afebrile - temp upon arrival P: Continue routine care and medications Administered 1 g ampicillin IV x 1 for prophylaxis secondary to manual removal of placenta Repeat H&H in the am - consider IV iron transfusion PRN Pt and verbalized understanding and agree to above plan. They deny further questions or concerns at this time. Objective - Vital Signs/Intake & Output Vital Signs: Vital Signs x48h Temp Pulse Resp BP Pulse Ox 06/04/18 06:07 37.2 C 103 H 16 128/88 H 100 06/04/18 02:59 37.3 C 06/04/18 02:04 37.9 C H 108 H 16 127/80 100 06/04/18 01:44 112 H 143/93 H 100 06/04/18 01:40 121 H 138/96 H 100 06/04/18 00:46 108 H 16 145/76 H 100 06/04/18 00:28 38.1 C H 107 H 18 139/97 H 100 06/04/18 00:15 116 H 18 130/80 06/03/18 23:56 113 H 142/85 H 100 06/03/18 23:50 103 H 16 147/99 H 100 06/03/18 23:42 121 H 16 138/96 H 100 Intake & Output: Intake & Output 06/01/18 06/02/18 06/03/18 06/04/18 23:59 23:59 23:59 23:59 Intake Total 1100 Output Total 2 200 Balance 1098 -200 - Lab Results Fish Bones: 06/04/18 04:00 Other Labs: Lab Results x24hrs 06/04/18 06/04/18 06/04/18 Range/Units 04:00 04:00 04:00 WBC 23.8 H (4.8-10.8) x10^3/uL RBC 3.64 L (4.20-5.40) 10^6/uL Hgb 8.6 L (12.0-16.0) g/dL Hct 26.5 L (37.0-47.0) % MCV 73.0 L (81.0-99.0) fL MCH 23.7 L (27.0-31.0) pg MCHC 32.5 (32.0-36.0) g/dL RDW 19.3 H (12.0-15.0) % Plt Count 221 (130-450) 10^3/uL MPV 8.3 (7.9-10.8) fL Neut # (Auto) 20.7 H (1.5-6.6) 10^3/uL Lymph # (Auto) 1.5 (1.5-3.5) 10^3/uL [place] # (Auto) 1.5 H (0.0-1.0) 10^3/uL Eos # (Auto) 0.0 (0.0-0.7) 10^3/uL Baso # (Auto) 0.0 (0.0-0.1) 10^3/uL Absolute Nucleated RBC 0.01 x10^3/uL Band Neuts % (Manual) Not Reportable Abnorm Lymph % (Manual) Not Reportable Nucleated RBC % 0.0 /100WBC Neutrophils # (Manual) Not Reportable Lymphocytes # (Manual) Not Reportable Monocytes # (Manual) Not Reportable Eosinophils # (Manual) Not Reportable Basophils # (Manual) Not Reportable Differential Comment MANUAL=AUTO DIFF Platelet Estimate NORMAL (130-450,000) (NORMAL) RBC Morph Micro Appear NORMAL APPEARANCE (NORMAL) Uric Acid 3.3 (2.6-7.2) mg/dL AST 28 (10-42) IU/L Lactate Dehydrogenase 249 H (91-225) IU/L Urine Color Urine Clarity (CLEAR) Urine pH (5.0-7.5) PH Ur Specific [place] (1.002-1.030) Urine Protein (NEGATIVE) mg/dL Urine Glucose (UA) (NEGATIVE) mg/dL Urine Ketones (NEGATIVE) mg/dL Urine Occult Blood (NEGATIVE) Urine Nitrite (NEGATIVE) Urine Bilirubin (NEGATIVE) Urine Urobilinogen (NORMAL) E.U./dL Ur Leukocyte Esterase (NEGATIVE) Urine RBC (0-5) /HPF Urine WBC (0-5) /HPF Ur Squamous Epith Cells (<= Few) Urine Bacteria (None Seen) /HPF Urine Creatinine mg/dL Ur Total Protein Timed mg/dL Protein/Creatinin Ratio (<=0.2) Influenza A (Rapid) (Negative) Influenza B (Rapid) (Negative) 06/03/18 06/03/18 06/03/18 Range/Units 18:50 16:50 16:50 WBC (4.8-10.8) x10^3/uL RBC (4.20-5.40) 10^6/uL Hgb (12.0-16.0) g/dL Hct (37.0-47.0) % MCV (81.0-99.0) fL MCH (27.0-31.0) pg MCHC (32.0-36.0) g/dL RDW (12.0-15.0) % Plt Count (130-450) 10^3/uL MPV (7.9-10.8) fL Neut # (Auto) (1.5-6.6) 10^3/uL Lymph # (Auto) (1.5-3.5) 10^3/uL [place] # (Auto) (0.0-1.0) 10^3/uL Eos # (Auto) (0.0-0.7) 10^3/uL Baso # (Auto) (0.0-0.1) 10^3/uL Absolute Nucleated RBC x10^3/uL Band Neuts % (Manual) Abnorm Lymph % (Manual) Nucleated RBC % /100WBC Neutrophils # (Manual) Lymphocytes # (Manual) Monocytes # (Manual) Eosinophils # (Manual) Basophils # (Manual) Differential Comment Platelet Estimate (NORMAL) RBC Morph Micro Appear (NORMAL) Uric Acid (2.6-7.2) mg/dL AST (10-42) IU/L Lactate Dehydrogenase (91-225) IU/L Urine Color YELLOW Urine Clarity CLEAR (CLEAR) Urine pH 5.5 (5.0-7.5) PH Ur Specific [place] 1.010 (1.002-1.030) Urine Protein NEGATIVE (NEGATIVE) mg/dL Urine Glucose (UA) NEGATIVE (NEGATIVE) mg/dL Urine Ketones 40 H (NEGATIVE) mg/dL Urine Occult Blood [place] (NEGATIVE) Urine Nitrite NEGATIVE (NEGATIVE) Urine Bilirubin NEGATIVE (NEGATIVE) Urine Urobilinogen 0.2 (NORMAL) (NORMAL) E.U./dL Ur Leukocyte Esterase LARGE H (NEGATIVE) Urine RBC 0-5 (0-5) /HPF Urine WBC 11-25 H (0-5) /HPF Ur Squamous Epith Cells MOD Squamous H (<= Few) Urine Bacteria Rare (None Seen) /HPF Urine Creatinine 63.6 mg/dL Ur Total Protein Timed 9 mg/dL Protein/Creatinin Ratio 0.1 (<=0.2) Influenza A (Rapid) Negative (Negative) Influenza B (Rapid) Negative (Negative) 06/03/18 06/03/18 06/03/18 Range/Units 16:05 16:05 14:54 WBC 13.7 H (4.8-10.8) x10^3/uL RBC 4.51 (4.20-5.40) 10^6/uL Hgb 10.7 L (12.0-16.0) g/dL Hct 33.5 L (37.0-47.0) % MCV 74.2 L (81.0-99.0) fL MCH 23.7 L (27.0-31.0) pg MCHC 31.9 L (32.0-36.0) g/dL RDW 19.4 H (12.0-15.0) % Plt Count 249 (130-450) 10^3/uL MPV 8.5 (7.9-10.8) fL Neut # (Auto) 9.8 H (1.5-6.6) 10^3/uL Lymph # (Auto) 3.0 (1.5-3.5) 10^3/uL [place] # (Auto) 0.8 (0.0-1.0) 10^3/uL Eos # (Auto) 0.0 (0.0-0.7) 10^3/uL Baso # (Auto) 0.1 (0.0-0.1) 10^3/uL Absolute Nucleated RBC 0.02 x10^3/uL Band Neuts % (Manual) Abnorm Lymph % (Manual) Nucleated RBC % 0.1 /100WBC Neutrophils # (Manual) Lymphocytes # (Manual) Monocytes # (Manual) Eosinophils # (Manual) Basophils # (Manual) Differential Comment Platelet Estimate (NORMAL) RBC Morph Micro Appear (NORMAL) Uric Acid 3.4 (2.6-7.2) mg/dL AST 20 (10-42) IU/L Lactate Dehydrogenase 185 (91-225) IU/L Urine Color Urine Clarity (CLEAR) Urine pH (5.0-7.5) PH Ur Specific [place] (1.002-1.030) Urine Protein (NEGATIVE) mg/dL Urine Glucose (UA) (NEGATIVE) mg/dL Urine Ketones (NEGATIVE) mg/dL Urine Occult Blood (NEGATIVE) Urine Nitrite (NEGATIVE) Urine Bilirubin (NEGATIVE) Urine Urobilinogen (NORMAL) E.U./dL Ur Leukocyte Esterase (NEGATIVE) Urine RBC (0-5) /HPF Urine WBC (0-5) /HPF Ur Squamous Epith Cells (<= Few) Urine Bacteria (None Seen) /HPF Urine Creatinine mg/dL Ur Total Protein Timed mg/dL Protein/Creatinin Ratio (<=0.2) Influenza A (Rapid) (Negative) Influenza B (Rapid) (Negative)
[2018-06-04] MEDS ORDERED: AMPICILLIN 1 GM in SODIUM CHLORIDE 0.9% MINIBAG 100 ML IV ONE (08:00)
[2018-06-04] MEDS: LABETALOL 100 MG TABLET PO SCH ×2 (08:18→14:07)
[2018-06-04] MEDS: SODIUM CHLORIDE FLUSH 0.9% 10 ML SYRINGE IVP SCH (08:29)
[2018-06-04] MEDS ORDERED: SODIUM CHLORIDE FLUSH 0.9% 10 ML SYRINGE ONE (08:31)
[2018-06-04] MEDS: DOCUSATE SODIUM 100 MG CAPSULE PO SCH (09:16)
[2018-06-05] MEDS: IBUPROFEN 800 MG TABLET PO SCH ×5 (03:37→22:51)
[2018-06-05] MEDS: ACETAMINOPHEN 500 MG TABLET PO PRN ×2 (03:42→10:05)
[2018-06-05 06:58] LABS: MEAN CORPUSCULAR HGB CONC 32.2 g/dL (32.0-36.0); MEAN CORPUSCULAR VOLUME 74.6 fL (81.0-99.0); MEAN PLATELET VOLUME 8.4 fL (7.9-10.8); RED BLOOD COUNT 2.64 10^6/uL (4.20-5.40); WHITE BLOOD COUNT 14.7 x10^3/uL (4.8-10.8)
[2018-06-05 07:05] LABS: HGB - HEMOGLOBIN 6.3 g/dL (12.0-16.0)
[2018-06-05] MEDS ORDERED: diphenhydrAMINE 25 MG CAPSULE PO PRN (08:07)
--- NOTE | 2018-06-05 08:32 | PROVIDER PROGRESS NOTE ---
Subjective - Subjective Subjective: S: Bonding well with baby. without difficulty. Reports feeling fine when she is laying in bed but notes lightheadedness when walking to the bathroom. Pain well controlled with oral medications. Bleeding decreased and is light. Pt describes her flow like a normal menses. O: BP 128/80, T 36.6, HR 109, RR 16 Hgb: 10.7-->8.6-->6.3 Hct: 33.5-->26.5-->19.7 PLT: 249-->221-->183 WBC: 13.7-->23.8-->14.7 Heart RRR w/o M/G/R, lungs CTAB, abdomen soft and nontender with fundus firm at U-1. Perineum intact and repair without edema. Light lochia rubra. Bilateral LEs no edema. A: 28yo -->P2 s/p TSVD of viable male infant Acute blood loss following vaginal delivery Previously hypertensive - resolved P: 1 Unit of blood to transfuse now secondary to acute blood loss. Will repeat H&H 2 hours after first unit. If tachycardia persists, will administer geri tional unit. Pre-medicate with benadryl PO. Continue routine care and medications. Full report given to Dr. Pelletier, vision rehabilitation therapist physician who is in agree with above plan. Pt and labor RN verbalized understanding and agree to above plan. Objective - Vital Signs/Intake & Output Vital Signs: Vital Signs x48h Temp Pulse Resp BP Pulse Ox 06/05/18 03:30 36.6 C 86 16 128/80 100 Intake & Output: Intake & Output 06/02/18 06/03/18 06/04/18 06/05/18 23:59 23:59 23:59 23:59 Intake Total 1100 500 Output Total 2 200 Balance 1098 300 - Lab Results Fish Bones: 06/05/18 06:39 Other Labs: Lab Results x24hrs 06/05/18 Range/Units 06:39 WBC 14.7 H (4.8-10.8) x10^3/uL RBC 2.64 L (4.20-5.40) 10^6/uL Hgb 6.3 L* (12.0-16.0) g/dL Hct 19.7 L* (37.0-47.0) % MCV 74.6 L (81.0-99.0) fL MCH 24.0 L (27.0-31.0) pg MCHC 32.2 (32.0-36.0) g/dL RDW 19.0 H (12.0-15.0) % Plt Count 183 (130-450) 10^3/uL MPV 8.4 (7.9-10.8) fL
[2018-06-05] MEDS ORDERED: SODIUM CHLORIDE 0.9% 500 ML IV ONE ×2 (09:35→16:26)
[2018-06-05] MEDS: DOCUSATE SODIUM 100 MG CAPSULE PO SCH (10:06)
[2018-06-05 12:00] LABS: HEPATITIS B SURFACE ANTIGEN NON-REACTIVE (NON-REACTIVE)
[2018-06-05 14:32] LABS: HGB - HEMOGLOBIN 7.2 g/dL (12.0-16.0)
[2018-06-05 21:46] LABS: HGB - HEMOGLOBIN 8.8 g/dL (12.0-16.0); MEAN CORPUSCULAR HEMOGLOBIN 26.2 pg (27.0-31.0); MEAN CORPUSCULAR HGB CONC 34.1 g/dL (32.0-36.0); MEAN CORPUSCULAR VOLUME 76.8 fL (81.0-99.0); MEAN PLATELET VOLUME 8.7 fL (7.9-10.8); RED BLOOD COUNT 3.35 10^6/uL (4.20-5.40); RED CELL DISTRIBUTION WIDTH 19.7 % (12.0-15.0); WHITE BLOOD COUNT 14.8 x10^3/uL (4.8-10.8)
[2018-06-06] MEDS: IBUPROFEN 800 MG TABLET PO SCH ×3 (03:28→09:39)
[2018-06-06 06:21] LABS: HGB - HEMOGLOBIN 8.5 g/dL (12.0-16.0); MEAN CORPUSCULAR HEMOGLOBIN 25.4 pg (27.0-31.0); MEAN CORPUSCULAR HGB CONC 33.3 g/dL (32.0-36.0); MEAN CORPUSCULAR VOLUME 76.2 fL (81.0-99.0); MEAN PLATELET VOLUME 8.3 fL (7.9-10.8); RED BLOOD COUNT 3.35 10^6/uL (4.20-5.40); WHITE BLOOD COUNT 13.3 x10^3/uL (4.8-10.8)
--- NOTE | 2018-06-06 07:28 | Discharge Plan ---
Discharge Plan Disposition: 01 Home, Self Care Condition: Good Diet: Regular Activity Restrictions: No Restrictions Shower Restrictions: No Driving Restrictions: No Weight Bearing: Full Weight No Smoking: If you smoke, Please STOP! Call for help. Follow-up with: Angelia Montoya CNM, ARNP [Provider Admit Priv/Credential] -
--- NOTE | 2018-06-06 07:44 | PROVIDER PROGRESS NOTE ---
Subjective - Subjective Subjective: FINAL PROGRESS NOTE: S: Bonding well with baby. without difficulty although does note some nipple soreness. She did stop with her first baby secondary to discomfort with nursing but does not feel it is nearly as bad currently as it was then. Denies pain and denies discomfort to perineum. Bleeding decreased and is light. She states she was having to use a larger pad yesterday but has been able to use smaller pads. Feels the flow is consistent with a medium-flow menses. Denies dizziness or lightheadedness. supportive at the bedside. They are anxious to go home today. O: Hgb 6.3 --> 8.5 Hct 19.7 --> 25.5 PLT 183 --> 198 BP 124/80, HR 86, RR 18; T 36.9 Heart RRR w/o M/G/R, lungs CTAB, abdomen soft and nontender, fundus firm at U-2. Perineum intact. Light lochia rubra. Bilateral LE's no edema. A: 28yo -->P2 PPD#2 s/p TSVD of viable male Acute blood loss anemia - s/p 2 Units with therapeutic response P: Reviewed self care and warning s/sx. Rx for ferrous sulfate 325mg 1 tab PO tid x 2 weeks, then 1 tab PO daily handwritten and provided to pt. Rx handwritten and provided for all purpose nipple ointment and instructions reviewed. Advised application after every feed with no need to wipe off prior to next feed. Pt previously struggled with significant depression where she broke up with her boyfriend and cut off all of her hair. Reviewed recommendation for initiation of sertraline today. Pt declines medication at this time and states she is in a better place now than she was then. Reviewed warning s/sx and normal vs abnormal mood related changes. Pt verbalized understanding and requests Rx to fill and have on hand to start PRN. She has never been on medication for anxiety or depression in the past and states she was never treated for the depression she knows she had after her first baby. Risks, benefits, alternatives reviewed extensively today and Rx handwritten and provided to pt to fill. Advised her to call for appt if she feels she needs to initiate. Discharge home today. Report given and plan of care reviewed with Dr. Pelletier, education and outreach coordinator physician, who is in agreement with discharge home today. Planning Mirena IUD for contraception - has used previously without concerns. F/u in 1 week for support visit and in 3 weeks for routine visit. Pt and her both verbalized understanding and agree to the above plan. They deny further questions or concerns at this time. Objective - Vital Signs/Intake & Output Vital Signs: Vital Signs x48h Temp Pulse Resp BP Pulse Ox 06/06/18 03:33 36.9 C 86 18 124/80 100 Intake & Output: Intake & Output 06/03/18 06/04/18 06/05/18 06/06/18 23:59 23:59 23:59 23:59 Intake Total 1100 841 870 2021 Output Total 2 200 Balance 1098 697 699 [id number] - Lab Results Fish Bones: 06/06/18 06:08 Other Labs: Lab Results x24hrs 06/06/18 06/05/18 06/05/18 Range/Units 06:08 21:20 14:17 WBC 13.3 H 14.8 H (4.8-10.8) x10^3/uL RBC 3.35 L 3.35 L (4.20-5.40) 10^6/uL Hgb 8.5 L 8.8 L 7.2 L (12.0-16.0) g/dL Hct 25.5 L 25.7 L 22.0 L (37.0-47.0) % MCV 76.2 L 76.8 L (81.0-99.0) fL MCH 25.4 L 26.2 L (27.0-31.0) pg MCHC 33.3 34.1 (32.0-36.0) g/dL RDW 20.0 H 19.7 H (12.0-15.0) % Plt Count 198 204 (130-450) 10^3/uL MPV 8.3 8.7 (7.9-10.8) fL Hep Bs Antigen (NON-REACTIVE) Hep Bs Immunity Index (> OR = 10) mIU/mL Hep B Core Total Ab (NON-REACTIVE) Blood Type Blood Type Recheck Antibody Screen Crossmatch IS Only 06/05/18 06/04/18 06/04/18 Range/Units 06:39 04:00 04:00 WBC (4.8-10.8) x10^3/uL RBC (4.20-5.40) 10^6/uL Hgb (12.0-16.0) g/dL Hct (37.0-47.0) % MCV (81.0-99.0) fL MCH (27.0-31.0) pg MCHC (32.0-36.0) g/dL RDW (12.0-15.0) % Plt Count (130-450) 10^3/uL MPV (7.9-10.8) fL Hep Bs Antigen NON-REACTIVE (NON-REACTIVE) Hep Bs Immunity Index <5 L (> OR = 10) mIU/mL Hep B Core Total Ab (NON-REACTIVE) Blood Type Blood Type Recheck O POSITIVE Antibody Screen Crossmatch IS Only 06/04/18 06/03/18 Range/Units 04:00 14:54 WBC (4.8-10.8) x10^3/uL RBC (4.20-5.40) 10^6/uL Hgb (12.0-16.0) g/dL Hct (37.0-47.0) % MCV (81.0-99.0) fL MCH (27.0-31.0) pg MCHC (32.0-36.0) g/dL RDW (12.0-15.0) % Plt Count (130-450) 10^3/uL MPV (7.9-10.8) fL Hep Bs Antigen (NON-REACTIVE) Hep Bs Immunity Index (> OR = 10) mIU/mL Hep B Core Total Ab NON-REACTIVE (NON-REACTIVE) Blood Type O POSITIVE Blood Type Recheck Antibody Screen NEGATIVE Crossmatch IS Only See Detail
[2018-06-06 08:14] VITALS: BP 133/91
--- NOTE | 2018-06-06 09:14 | DISCHARGE SUMMARY ---
Physician: DIANN Davis DATE OF ADMISSION: 06/03/2018 DATE OF DISCHARGE: 06/06/2018 DIAGNOSES ON ADMISSION 1. A 28-year-old G3, P1-0-1-1 at 40.3 weeks gestation. 2. Elective induction of labor with pre-induction cervical ripening. 3. Group B streptococcus positive. 4. Hypertension. DIAGNOSES ON DISCHARGE 1. A 28-year-old G3, P2-0-1-2, status post spontaneous vaginal delivery on 06/04/2018. 2. Acute blood loss anemia, status post 2 units with therapeutic response. 3. . BRIEF HISTORY: Alina is a patient of [facility] who transferred from [facility] at 35 weeks' gestation. She presented to Labor and Delivery on 06/03/2018 for elective induction of labor. She was noted to have elevated blood pressure upon her arrival, 150/100 with negative PIH labs and negative urine protein. She was given 100 mg p.o. labetalol and BP decreased to 130s/90s where it remained through her labor and delivery course. She received penicillin for GBS prophylaxis per protocol. She also received 650 mg of Tylenol p.o. secondary to low-grade fever and chills. Her rapid influenza was negative. She was given 50 mcg BC misoprostol q. 4 hours for pre-induction cervical ripening x2 total doses. She progressed to spontaneously deliver a viable male at 2309 hours on 06/03/2018. scores were 7 and 9 at 1 and 5 minutes, respectively. EBL 350 mL Placenta required manual removal. Dr. Pelletier, on-call physician, was notified and arrived at bedside and performed a limited bedside transabdominal ultrasound, which noted blood clot in the lower uterine segment. The perineum, vagina and cervix were inspected and found to have a second-degree perineal laceration, which was repaired with 3-0 Vicryl on a CT1 needle in standard fashion under sterile conditions. She was also noted to have a left labial laceration, which was repaired using 4-0 Vicryl on an SH needle in standard fashion under sterile conditions. The patient's bleeding increased and vigorous fundal massage expelled a large clot of blood in addition to a small piece of placenta. The patient was administered Pitocin via IV for hemostasis and uterine fundus remained firm. Bleeding was quantified as 500 mL. Secondary to manual removal of placenta, 1g Ampicillin administered for prophylaxis. Upon arrival, the patient was noted to be anemic with a hemoglobin of 10.7 and a hematocrit of 33.5. On the morning of day 1, the patient's hemoglobin and hematocrit were noted to be 8.6 and 26.5, respectively. Dr. Pelletier, on-call physician, was consulted and the patient received 2 units of red blood cells with improvement in her hemoglobin and hematocrit. The patient is asymptomatic and feeling well following her transfusion. She is ambulating and tolerating a regular diet. She is urinating without difficulty. Her lochia is normal. Her pain is well controlled with oral medications. She will be discharged home today on day 2 with prescriptions for Zoloft 50 mg secondary to her history of significant depression, ferrous sulfate 325 mg 1 tablet p.o. t.i.d. secondary to her acute blood loss anemia and anemia complicating upon her arrival. She has been advised to continue ibuprofen and Tylenol [id number] for pain management as needed. In addition, she has been encouraged to continue her vitamin while . She intends to followup with myself at [facility] in 1 week for support visit and in 3 weeks for routine visit. She has been given precautions to call if she has any worsening fevers, chills, abdominal pain, increased bleeding or foul- smelling vaginal lochia. TD: 06/06/2018 08:29 PHILIP
[2018-06-06] MEDS: DOCUSATE SODIUM 100 MG CAPSULE PO SCH (09:40)
--- NOTE | 2018-06-06 12:11 | Labor Flowsheet ---
Labor Flowsheet Datetime Report Generated by CPN: 06/06/2018 12:11 Datetime: 06/06/2018 07:32 VITAL SIGNS NBP Sys/Marilia/Mean (mmHg): 133 : 91 : 100 Pulse: 78 LaborFlag: Labor Datetime: 06/04/2018 06:05 SpO2 (%): 100 Datetime: 06/03/2018 23:27 Patient Care Comments: Call place to Prabhu to assist with placenta removal d/t retained [facility]. Datetime: 06/03/2018 23:15 Membranes Ruptured Date/Time: 06/03/2018 19:53 Amniotic Fluid Odor: Normal Datetime: 06/03/2018 23:09 UTERINE ACTIVITY Monitor Mode: External Frequency (min): 1.5-3 Quality: Strong Duration (sec): 80-120 Pattern: Normal: <= 5 Contractions in 10 Minutes Resting Tone (Palpate): Relaxed ASSESSMENT A Monitor Mode: Telemetry FHR Baseline Rate : 140 Variability: Moderate 6-25 bpm Accelerations: None Decelerations: Early Category: Category II STAGE 2 Pushing: Coached on Pushing Pushing Position: Pushing with Contractions Pushing Progress: with Pushing Datetime: 06/03/2018 23:00 Contraction Comments: coupleting noted Datetime: 06/03/2018 22:45 VAGINAL EXAM Dilatation (cm): 10.0 Effacement (%): 100 Station: 1 Exam by: Angela Smith, CNM Vaginal Bleeding: Normal Show Datetime: 06/03/2018 22:34 Monitor Interventions for UA: [place] Adjusted Datetime: 06/03/2018 22:31 COMMUNICATION Communication: Provider at Bedside Communication Comments: talk to pt about plan of care Datetime: 06/03/2018 22:24 Patient Position/Activity: Left Lateral Datetime: 06/03/2018 22:14 Pain Assessment Comments: pt states she feels sleepy, moaning through contractions comfortable in b etween contractions Datetime: 06/03/2018 21:29 Comments: periods of intermit monitoring d/t jacuzzi tub Datetime: 06/03/2018 21:26 TEACHING Instructional Method: Verbal Plan of Care: Plan of Care Discussed; Vaginal Delivery Labor/Induction: Labor Stages Pain Management: Pain Scale/Goals; Comfort Measures Datetime: 06/03/2018 21:19 Nausea/Vomiting: Present Datetime: 06/03/2018 21:11 Comfort Measures: Family Support Datetime: 06/03/2018 21:00 PAIN Pain Scale: 6 Pain Goal: 5 Pain Coping: Other Hygiene: Complete Bath Datetime: 06/03/2018 20:51 Temperature (C): 37.8 Datetime: 06/03/2018 20:11 MEDICATIONS Antibiotics: Penicillin IV (Units) @ 2.5 Datetime: 06/03/2018 20:10 Pain Presence: Intermittent Pain Type: Contraction Pain Location: Abdomen Pain Relief Measures: Comfort Measures Datetime: 06/03/2018 20:06 Cervical Ripening Agents: Cytotec @ Datetime: 06/03/2018 19:53 Membrane Status: Ruptured Membranes Rupture Method: Artificial Amniotic Fluid Color: Clear Amniotic Fluid Amount: Scant Datetime: 06/03/2018 19:40 MATERNAL ASSESSMENT Level of Consciousness: Fully Conscious DTR's/Clonus: DTRs 2+; No Clonus Headache: Denies Breath Sounds, Left: Clear and Equal Breath Sounds, Right: Clear and Equal RUQ Epigastric Pain: Denies PATIENT CARE IV/Blood Work: IV Saline Locked Oxygen Method: Room Air I/O Interventions: Ice Chips Given Datetime: 06/03/2018 18:56 FHR Baseline Changes: No Baseline Change Datetime: 06/03/2018 16:55 Respirations: 16
== END 2018-06-06 11:50 | disposition home or self-care (01) | DRG 806 ==
LOC: FBP 14:31
PROVIDERS: ADMIT Nurse Practitioner Obstetrics & Gynecology; ATTEND Nurse Practitioner Obstetrics & Gynecology
PROC: 10E0XZZ Delivery of Products of Conception, External Approach (ICD-10-PCS; principal; 2018-06-04)
PROC: 0KQM0ZZ Repair Perineum Muscle, Open Approach (ICD-10-PCS; 2018-06-04)
PROC: 10907ZC Drainage of Amniotic Fluid, Therapeutic from Products of Conception, Via Natural or Artificial Opening (ICD-10-PCS; 2018-06-04)
PROC: 3E0P7VZ Introduction of Hormone into Female Reproductive, Via Natural or Artificial Opening (ICD-10-PCS; 2018-06-04)
PROC: 30233N1 Transfusion of Nonautologous Red Blood Cells into Peripheral Vein, Percutaneous Approach (ICD-10-PCS; 2018-06-05)
DX: O99.824 Streptococcus B carrier state complicating childbirth (principal); D62 Acute posthemorrhagic anemia; Z37.0 Single live birth; Z3A.40 40 weeks gestation of pregnancy; O16.4 Unspecified maternal hypertension, complicating childbirth; O99.02 Anemia complicating childbirth; D64.9 Anemia, unspecified; O70.1 Second degree perineal laceration during delivery; O69.81X0 Labor and delivery complicated by cord around neck, without compression, not applicable or unspecified
CPT/HCPCS: 36415; 81001; 82570; 83615; 84156; 84450; 84550; 85014; 85018; 85025; 85027; 86317; 86704; 86850; 86900; 86901; 86920; 87275; 87276; 87340; A9270; J7120; P9016